=== PATIENT | male | born 2000 | race Caucasian/White ===

== ENCOUNTER 2022-07-25 15:26 | Outpatient (REF) | payer OTHER, SELFPAY ==
[2022-07-25 17:23] LABS: Urine Cytology See Pathology rpt
== END 2022-07-25 15:27 | disposition home or self-care (01) ==
LOC: HO.LAB 15:26
PROVIDERS: PCP Pediatrics; Visit Provider Nurse Practitioner Family
DX: R31.0 Gross hematuria (principal); Z87.442 Personal history of urinary calculi
CPT/HCPCS: 88112; 99202

== ENCOUNTER 2022-07-31 13:14 | Outpatient (REF) | payer OTHER, SELFPAY ==
--- NOTE | ~2022-07-31 | CT_ITS ---
EXAMINATION: CT ABDOMEN AND PELVIS WITHOUT IV CONTRAST CLINICAL INFORMATION: 22-year-old male with gross hematuria. Stone evaluation. COMPARISON: None. TECHNIQUE: Noncontrast volumetric helical CT acquisition of the abdomen and pelvis. Axial images are presented at 0.6 mm and 5 mm slice thickness. Coronal and sagittal reformatted images were generated at the technologist workstation. This CT examination was performed using dose optimization techniques as appropriate, variously including the following: *Automated exposure control *Adjustment of mA and/or kV according to patient size (this includes techniques or standardized protocols for targeted exams where dose is matched to indication/reason for exam; i.e. extremities or head) *Use of iterative reconstruction technique DLP: 697 mGy-cm. FINDINGS: LOCALIZER IMAGES: Obese body habitus. Normal bowel gas pattern. LUNG BASES: No basilar consolidation or pleural effusion. A few small pulmonary nodules of < 0.4 cm average diameter present in the lung bases. No follow-up imaging recommended for these incidental findings. Note that Fleischner Society guidelines would not be followed in a patient of this age. LIVER, GALLBLADDER, AND BILIARY TREE: The liver has normal size, shape, and attenuation. No focal hepatic lesion. The gallbladder is underdistended; no radiopaque gallstones, wall thickening, or pericholecystic fluid. No intrahepatic or extrahepatic bile duct dilatation. PANCREAS: Normal. No evidence of pancreatic mass, edema or ductal dilatation. SPLEEN: Normal. ADRENAL GLANDS: Normal. KIDNEYS AND URETERS: Kidneys are normal in size. No renal mass or perinephric edema. Small 0.2 cm calyceal stone in the posterior interpolar region of the right kidney. A stone or cluster of two stones in the renal pelvis measures up to 0.8 cm maximum dimension, density of at least 720 Hounsfield units, located 14.2 cm deep from the skin surface at the posterior axillary line. No hydronephrosis. The right and left ureters are unremarkable. The few calcifications observed in the lower pelvis are phleboliths. BLADDER: Unremarkable. BOWEL AND PERITONEUM: Stomach and small bowel have a normal appearance. The appendix is normal. No pericolonic fat stranding or overt bowel wall thickening. No evidence of acute inflammation or obstruction along the gastrointestinal tract. No ascites or pneumoperitoneum. ABDOMINAL WALL: Unremarkable. LYMPH NODES: No pathologic sized lymph nodes in the abdomen or pelvis. No inguinal lymphadenopathy. VASCULATURE: Unremarkable. PELVIC VISCERA: Prostate gland is normal. No pelvic free fluid. MUSCULOSKELETAL: Unremarkable. CT/CT kidney stone IMPRESSION: There are stones of the right kidney without hydronephrosis or hydroureter. The stone of the right renal pelvis measures up to 0.8 cm maximum dimension.
== END 2022-07-31 13:15 | disposition home or self-care (01) ==
LOC: HO.CT 13:14
PROVIDERS: Visit Provider Nurse Practitioner Family
DX: R31.0 Gross hematuria (principal)
CPT/HCPCS: 74176

== ENCOUNTER → 2022-08-01 10:54 | Outpatient (BNVA) | payer OTHER, SELFPAY | PROVIDERS: Visit Provider Nurse Practitioner Family | DX: Z13.89 Encounter for screening for other disorder (principal) ==

== ENCOUNTER 2022-08-08 14:46 | Day surgery (SDC) | payer OTHER, SELFPAY ==
[2022-08-08] VITALS (7 sets, daily range): BP systolic 110–123; BP diastolic 68–78; PULSE 77–105; RESP 12–19; TEMP 36.2–37.2; O2SAT 97–100; BMI 38.2
--- NOTE | ~2022-08-08 | FL_ITS ---
EXAMINATION: XR FLUOROSCOPY WITH IMAGES CLINICAL INFORMATION: Right urinary tract calculi. COMPARISON: Report CT stone study 07/31/2022. TECHNIQUE: Fluoroscopy Supervised By: Dr. Fish Springer. Fluoroscopy Time: 22 seconds. Cumulative Dose: 9.9 mGy. Images: 1. FINDINGS: Proximal end of a right ureteral stent is seen overlying right renal fossa. FL/FL guidance in OR IMPRESSION: Fluoroscopy for urologic procedure.
--- NOTE | 2022-08-08 16:32 | HO.ANESPROP2 ---
HPI - Anesthesia Eval Consult details Narrative: 22 M for cystoscopy Marijuana smoker PMFSH Active Problems Active Problems: All Active Problems (Updated 08/01/22 @ 20:38 [facility] Calculus of right kidney (Acute) Low back pain (Acute) Gross hematuria (Acute) Past Medical History Functional capacity: independent ambulation Family History Family history of problems with anesthesia: No Surgical History History of Problems with Anesthesia: No Social History Social History Patient Tobacco Use Status: Never used Tobacco Use of substances other than those prescribed or required for medical reasons: Yes Substance Use Type Other:: smoke Substance Use Frequency: Weekly Are you DNR?: No Advance Directives: No Advance Directives Information Provided: No Meds Allergies Allergy/AdvReac Type Severity Reaction Status Date / Time No Known Allergies Allergy Unverified 08/01/22 10:56 [No Known Allergies*] Exam Exam Date and Time: August 08, 2022 1632 Height,Weight and Vital Signs: Height 5 ft 5 in Weight 104.326 kg Last Vital Signs Temp 99 F 08/08/22 16:16 Pulse 77 08/08/22 16:16 Resp 16 08/08/22 16:16 BP 114/68 08/08/22 16:16 Pulse Ox 100 08/08/22 16:16 O2 Del Method 08/08/22 16:16 Airway Mallampati Class: IV TM Dist: >3cm Neck ROM: Full Loose/Missing/Broken Teeth: Yes Heart: S1,S2 Lungs: b/l breath sounds Assessment and Plan Assessment Anesthesia Assessment: Anesthesia Plan Discussed and Chart Reviewed Final Anesthetic Review Family History of Problems with Anesthesia: No History of Problems with Anesthesia: No NPO: Yes ASA Class: II Final Preanesthetic Review: Meds/Allgs Chart Reviewed, Consent Obtained/Reviewed and Anes Risks/Benef Reviewed Patient Risk: Intermediate Procedure Risk: Intermediate Anesthetic Plan Anesthetic Plan: GA Disposition: Standard PACU
--- NOTE | 2022-08-08 16:41 | MHC.SHP ---
Pre-Procedural Eval Section A Date of Service: 08/08/22 The patient is an INPATIENT: No Changes since office visit: No Cold of Flu in the past 2 weeks, No New Medical Problems, No Changes in Medication and No Patient answered all questions The History & Physical has been completed within 30 days and I have reviewed it.: Yes Section B Chief Complaint: Calculus of kidney Details of Present Illness: righht retorgrade, ureteroscopy, laser, stent Allergies: Allergies Allergy/AdvReac Type Severity Reaction Status Date / Time No Known Allergies Allergy Unverified 08/01/22 10:56 [No Known Allergies*] Review of Systems Sugical H&P ROS: Negative: Constitution, Cardiovascular, Respiratory, Neurological, Psychiatric, Hem-Onc, Allergic/Immunologic, Gastrointestinal, Genitourinary, Musculoskeletal, Integumentary, Endocrine and Eyes/Ears/Nose/Throat Exam Surgical H&P Exam: Normal: HEENT, Normal: Heart, Normal: Lungs, Normal: Extremities, Normal: Abdomen, Normal: Skin and Normal: Neurological Plan Diagnosis/Plan: Unchanged I have reviewed the history and physical and performed a pertinent physical examination on my patient. No changes have occurred unless specified. Time Spent With Patient Time: Total time managing care of this patient today ____ minutes.
--- NOTE | 2022-08-08 17:39 | P.OP_ITS ---
Operative Note Operative Note Date of Service: 08/08/22 Narrative: PreOperative Diagnosis: right renal stones Post Operative Diagnosis: above with proximal ureteric narrowing Procedure: - cystoscopy, right retrograde - dilatation of ureteric orifice under fluoroscopy - right ureteroscopy, laser lithotripsy, stone basketing - right stent placement Surgeon: Dr Fish Springer Anesthesia: General Indications for procedure: right renal stones at [facility] Procedure: After informed consent was verified patient was brought to the operating placed in supine position. Anesthesia was administered per protocol. Patient was placed in modified dorsal lithotomy position and prepped and draped in a sterile fashion. Safety pause time-out and side of surgery confirmed. Antibiotics confirmed. 22 Malaysian cystoscope was inserted per urethra. Bladder was normal in its entirety. Both ureteric orifices were in normal position. The right ureteric orifice was cannulated and a retrograde examination was performed. filling defect in right renal pelvis. A Sensor guidewire was placed up to the level of the renal pelvis under fluoroscopy. The rigid cystoscope was removed and the inner cannula of ureteric access sheath was used under fluoroscopy to dilate the ureteric orifice. The ureteric access sheath was placed and the inner cannula with access wire removed. The digital flexible ureteral scope was placed. Tight proximal ureter on entry to kidney. Stone in renal pelvis. Laser used to break stone. Decision made to not use basket due to narrowing. Stone covered with biofilm. At the completion of the stone procedure a Sensor wire was placed back into the renal pelvis. The flexible scope was withdrawn. There was cracking of the ureter wall from shealth placement. The rigid cystoscope was backloaded over the wire and advanced into the bladder. A 6 Malaysian by 26 cm double-J stent was placed into the renal pelvis and bladder under a combination of fluoroscopy and direct visualization. The bladder was emptied. The patient tolerated the procedure well and was extubated in the operating room, and transferred in stable condition to the recovery area. Pathology: - Drains: stent
[2022-08-08] MEDS: Phenazopyridine HCL 100 MG TABLET PO (18:33)
--- NOTE | 2022-08-08 19:34 | PC.NURSE ---
Patients mother Araceli Orozco called and was informed not to have tylenol until 11:10 tonight since patient had IV tylenol in OR at 1710. Also informed to call Dr. Melgar office tomorrow to follow up about stent placement and when to follow up with Dr. Springer.
== END 2022-08-08 19:27 | disposition home or self-care (01) ==
PROVIDERS: PCP Pediatrics; Visit Provider Urology
PROC: (CPT 52356; principal; 2022-08-08 16:30)
DX: N20.0 Calculus of kidney (principal); R31.0 Gross hematuria; M54.50 Low back pain, unspecified
CPT/HCPCS: 52356; C1758; C1769; C1894; C2617; J0131; J1956; J2250; J2405; J3010; Q9967

== ENCOUNTER 2022-09-03 12:11 | Day surgery (SDC) | payer OTHER, SELFPAY ==
[2022-08-28 14:42] VITALS: BMI 38.2
--- NOTE | 2022-08-31 11:22 | P.CONAN_ITS ---
Documented by User: Magui Ly NP 08/31/22 11:24 HPI - Anesthesia Eval Consult details Narrative: 22yo M for Right Cystoscopy, Ureteroroscopy, Retro, Laser with poss stent s/p cysto, etc 07/2022 with [facility] 5 (see anesthesia record on chart) [facility] Active Problems Active Problems: All Active Problems (Updated 08/01/22 @ 20:38 by RAMEZ Lomax) Gross hematuria (Acute) Low back pain (Acute) Calculus of right kidney (Acute) Family History Family history of problems with anesthesia: No Surgical History Surgical History (Updated 08/28/22 @ 14:46 by Letty Jacques, YASMIN) Hx of cystoscopy History of Problems with Anesthesia: No Social History Social History Patient Tobacco Use Status: Never used Tobacco Are you DNR?: No Advance Directives: No Advance Directives Information Provided: Yes Meds Allergies Allergy/AdvReac Type Severity Reaction Status Date / Time No Known Allergies Allergy Verified 09/03/22 12:52 [No Known Allergies*] Home Medications Medication Instructions Recorded Confirmed Last Taken Type No Known Home Meds 09/03/22 09/03/22 Unknown History Exam Exam Date and Time: August 31, 2022 1122 Height,Weight and Vital Signs: Height 5 ft 5 in Weight 104.326 kg Assessment and Plan Assessment Anesthesia Assessment: Chart Reviewed Final Anesthetic Review Family History of Problems with Anesthesia: No History of Problems with Anesthesia: No Documented by User: Bob Hendrix MD 09/03/22 13:17 [facility] Surgical History Surgical History (Updated 08/28/22 @ 14:46 by Letty Jacques, YASMIN) Hx of cystoscopy Social History Social History Patient Tobacco Use Status: Never used Tobacco Are you DNR?: No Advance Directives: No Advance Directives Information Provided: Yes Meds Allergies Allergy/AdvReac Type Severity Reaction Status Date / Time No Known Allergies Allergy Verified 09/03/22 12:52 [No Known Allergies*] Home Medications Medication Instructions Recorded Confirmed Last Taken Type No Known Home Meds 09/03/22 09/03/22 Unknown History Exam Airway Mallampati Class: II TM Dist: >3cm Neck ROM: Full Heart: ok Lungs: ok Assessment and Plan Assessment Anesthesia Assessment: Anesthesia Plan Discussed and Smoking Cess. Discussed Final Anesthetic Review NPO: Yes ASA Class: II Final Preanesthetic Review: No Changes in Pt Med Stat, Meds/Allgs Chart Reviewed, Consent Obtained/Reviewed and Anes Risks/Benef Reviewed Patient Risk: Intermediate Procedure Risk: Low Anesthetic Plan Anesthetic Plan: GA and Agree w/ Assess. and Plan Disposition: Standard PACU
--- NOTE | ~2022-09-03 | FL_ITS ---
EXAMINATION: XR FLUOROSCOPY WITH IMAGES CLINICAL INFORMATION: Right kidney stone. COMPARISON: CT abdomen 07/31/2022. TECHNIQUE: Fluoroscopy Supervised By: Dr. Fish Springer. Fluoroscopy Time: 7.2 seconds. Cumulative Dose: 3.73 mGy. Images: 2. FINDINGS: There are 2 images obtained of the right abdomen. There is contrast opacifying the distal and mid ureter without any radiopaque calculi. The final image reveals an internal ureteral stent with its distal end in the bladder. The proximal end is not included in the [id number]. FL/FL guidance in OR IMPRESSION: Fluoroscopy guidance was provided to referring physician during retrograde pyelogram.
[2022-09-03 12:49] VITALS: BP 132/73; PULSE 92; RESP 18; TEMP 36.8; O2SAT 97
[2022-09-03] MEDS: Lactated Ringers 1,000 ML 100 ML IVCONT (13:15)
--- NOTE | 2022-09-03 14:24 | MHC.SHP ---
Pre-Procedural Eval Section A Date of Service: 09/03/22 The patient is an INPATIENT: No Changes since office visit: No Cold of Flu in the past 2 weeks, No New Medical Problems, No Changes in Medication and No Patient answered all questions The History & Physical has been completed within 30 days and I have reviewed it.: Yes Section B Chief Complaint: Calculus of kidney Details of Present Illness: cystoscopy, right stent Relevant Family History (Specify if Yes): No Relevant Social History: None Present Medications: see Short Stay Collaborative assessment Medical History: No relevant PMH History of Previous Operations: Relevant previous surgery/procedure and date(s) Allergies: Allergies Allergy/AdvReac Type Severity Reaction Status Date / Time No Known Allergies Allergy Verified 09/03/22 12:52 [No Known Allergies*] Review of Systems Sugical H&P ROS: Negative: Constitution, Cardiovascular, Respiratory, Neurological, Psychiatric, Hem-Onc, Allergic/Immunologic, Gastrointestinal, Genitourinary, Musculoskeletal, Integumentary, Endocrine and Eyes/Ears/Nose/Throat Exam Surgical H&P Exam: Normal: HEENT, Normal: Heart, Normal: Lungs, Normal: Extremities, Normal: Abdomen, Normal: Skin and Normal: Neurological Plan Diagnosis/Plan: Unchanged ( cystoscopy, right stent removal, right retrograde with ureteroscopy laser lithotripsy) I have reviewed the history and physical and performed a pertinent physical examination on my patient. No changes have occurred unless specified. Time Spent With Patient Time: Total time managing care of this patient today ____ minutes.
--- NOTE | 2022-09-03 15:07 | P.OP_ITS ---
Operative Note Operative Note Date of Service: 09/03/22 Narrative: PreOperative Diagnosis: right renal stones with indwelling stent Post Operative Diagnosis: right renal stones Procedure: - cystoscopy, right retrograde - removal of right indwelling stent - right ureteroscopy, stone basketing Surgeon: Dr Fish Springer Anesthesia: General Indications for procedure: prior procedure with right stent placement. Narrowing at [facility]. Remnant right renal pole stones Procedure: After informed consent was verified patient was brought to the operating placed in supine position. Anesthesia was administered per protocol. Patient was placed in modified dorsal lithotomy position and prepped and draped in a sterile fashion. Safety pause time-out and side of surgery confirmed. Antibiotics confirmed. 22 Egyptian cystoscope was inserted per urethra. Bladder was normal in its entirety. Both ureteric orifices were in normal position. The right ureteric orifice was cannulated and a retrograde examination was performed. no filling defect. A Sensor guidewire was placed up to the level of the renal pelvis under fluoroscopy. the indwelling right renal stent was grasped. The rigid cystoscope was removed. The ureteric access sheath was placed and the inner cannula with access wire removed. The digital flexible ureteral scope was placed. Stone fragments encountered in right lower pole. Using a 1.9 Egyptian 0 tip basket fragments of stone were removed. The bladder was emptied. The patient tolerated the procedure well and was extubated in the operating room, and transferred in stable condition to the recovery area. Pathology: Stones Drains: nothing
[2022-09-03 15:15] VITALS: BP 141/83; PULSE 65; RESP 17; TEMP 36.8; O2SAT 98
[2022-09-03 15:20] VITALS: BP 142/93; PULSE 79; RESP 18; O2SAT 95
[2022-09-03 15:25] VITALS: BP 147/83; PULSE 79; RESP 18; O2SAT 95
[2022-09-03] MEDS: Phenazopyridine HCL 100 MG TABLET PO (15:28)
[2022-09-03] MEDS: Acetaminophen 325 MG TABLET 975 MG PO (15:28)
[2022-09-03 15:30] VITALS: BP 143/80; PULSE 80; RESP 18; TEMP 36.9; O2SAT 96
[2022-09-11 11:43] LABS: Stone Source RIGHT RENAL STONE
== END 2022-09-03 15:56 | disposition home or self-care (01) ==
PROVIDERS: PCP Pediatrics; Visit Provider Urology
PROC: (CPT 52352; principal; 2022-09-03 14:10)
DX: N20.0 Calculus of kidney (principal); Z96.0 Presence of urogenital implants; Z46.6 Encounter for fitting and adjustment of urinary device
CPT/HCPCS: 52352; 82365; 88300; C1758; C1769; C1894; J1100; J1956; J2370; J2405; J3010; Q9967

== ENCOUNTER 2022-09-25 09:53 | Outpatient (REF) | payer OTHER, SELFPAY ==
--- NOTE | ~2022-09-25 | US_ITS ---
EXAMINATION: US RETROPERITONEAL LIMITED (RENAL ONLY) CLINICAL INFORMATION: Calculus of kidney. COMPARISON: CT stone study 07/31/2022. TECHNIQUE: Real-time imaging of the kidneys. FINDINGS: RIGHT KIDNEY: 10.4 x 4.7 x 5.7 cm (SAG x AP x TRV). The kidney is normal in size, contour, and echogenicity. Renal cortical thickness is normal. No renal calculi or focal parenchymal lesions. Mild upper pole hydronephrosis. LEFT KIDNEY: 10.9 x 5.3 x 5.6 cm (SAG x AP x TRV). The kidney is normal in size, contour, and echogenicity. Renal cortical thickness is normal. No calculi or focal parenchymal lesions. No hydronephrosis. US/US renal BI IMPRESSION: Mild right upper pole hydronephrosis. No nephrolithiasis.
== END 2022-09-25 09:54 | disposition home or self-care (01) ==
LOC: HO.HMGCX 09:53
PROVIDERS: PCP Internal Medicine; Visit Provider Urology
DX: N20.0 Calculus of kidney (principal)
CPT/HCPCS: 76775